=== PATIENT | male | born 1995 | race Two or more races ===

== ENCOUNTER 2018-05-28 11:57 | Emergency (ER) | payer OTHER ==
[~2018-05-28] VITALS: Ht 182.9 cm; Wt 106.6 kg
[2018-05-28 12:12] VITALS: BP 126/73
[2018-05-28] MEDS ORDERED: IBUPROFEN 600 MG TABLET PO ONE (12:30)
== END 2018-05-28 12:37 | disposition home or self-care (01) ==
LOC: ER 12:06
DX: J02.9 Acute pharyngitis, unspecified (principal); Z60.2 Problems related to living alone
CPT/HCPCS: 99283; A4606; Z7610

== ENCOUNTER 2020-02-15 01:12 | Inpatient (IN) | payer BC, OTHER ==
[~2020-02-15] VITALS: Ht 182.9 cm; Wt 107.0 kg
--- NOTE | 2020-02-15 01:20 | NUR ---
BIBSELF C/O LOWER ABDOMINAL PAIN X9 HR ACADEMIC PROGRAM SPECIALIST +NAUSEA, +DIARRHEA, -VOMITTING, -DYSURIA; PT TO BED 4, AAOX4, -SOB, NAD NOTED, PENDING ER PROVIDER TORO
[2020-02-15] MEDS ORDERED: ONDANSETRON HCL/PF 4 MG/2 ML VIAL ONE (01:35)
[2020-02-15] MEDS ORDERED: MORPHINE SULFATE INJ 4 MG/ML DISP.SYRIN ONE ×2 (01:36→03:08)
[2020-02-15] MEDS ORDERED: IV NS 0.9% 1,000 ML BAG IV ONE (02:00)
[2020-02-15] MEDS ORDERED: ONDANSETRON HCL/PF 4 MG/2 ML VIAL IVP ONE (02:00)
[2020-02-15] MEDS ORDERED: MORPHINE SULFATE INJ 2 MG/ML DISP.SYRIN IV ONE ×2 (02:00→03:30)
[2020-02-15] MEDS ORDERED: CT SWABBABLE VALVE TRANS SET 1 EA INFUS.SET MC ONE (02:26)
[2020-02-15] MEDS ORDERED: IOHEXOL-300 100 ML VIAL IV ONE (02:26)
[2020-02-15] MEDS ORDERED: IV NS 0.9% 250 ML IV ONE (02:27)
[2020-02-15 03:00] LABS: BASOPHILS % (AUTO) 0.3 % (0.0-2.0); EOSINOPHILS % (AUTO) 0.2 % (0.0-6.0); HEMATOCRIT 47 % (39-51); HEMOGLOBIN 15.8 g/dL (13.5-17.5); LYMPHOCYTES % (AUTO) 12.1 % (20.0-44.0); MEAN CORPUSCULAR HGB CONC 34 g/dl (31.0-36.0); MEAN CORPUSCULAR VOLUME 88 fL (80-96); MONOCYTES # (AUTO) 0.8 /CMM (0.1-1.30); MONOCYTES % (AUTO) 4.9 % (2.0-12.0); NEUTROPHILS # (AUTO) 13.9 /CMM (1.8-8.9); NEUTROPHILS % (AUTO) 82.5 % (43.0-81.0); PLATELET COUNT (AUTO) 324 /CMM (150-450); RED BLOOD CELL COUNT(AUTO) 5.35 MIL/uL (4.5-6.0); WHITE BLOOD COUNT (AUTO) 16.9 K/uL (4.3-11.0)
[2020-02-15 03:12] LABS: POTASSIUM 3.8 mmol/L (3.5-5.1)
[2020-02-15] MEDS ORDERED: HYDROMORPHONE 1 MG/1 ML DISP.SYRIN ONE (04:45)
--- NOTE | 2020-02-15 04:47 | NUR ---
COVID SWAB COLLECTED AND SENT TO LAB
[2020-02-15] MEDS ORDERED: HYDROMORPHONE 1 MG/1 ML DISP.SYRIN IV ONE (05:00)
[2020-02-15] MEDS ORDERED: PIPERACILLIN /TAZOBACTAM 3.375 G in IV D5W 50 ML IV ONE (05:00)
[2020-02-15] MEDS ORDERED: PIPERACILLIN /TAZOBACTAM 3.375 G VIAL IV ONE (05:15)
--- NOTE | 2020-02-15 05:19 | NUR ---
ATTEMPTED TO CONTACT DR. CASTILLO ([employer]) FOR CONSULT, LEFT MESSAGE. WILL FOLLOW UP
--- NOTE | 2020-02-15 05:20 | NUR ---
BLOOD CX COLLECTED, SENT TO LAB. IV ATB STARTED
--- NOTE | 2020-02-15 05:25 | NUR ---
DR. MARSH SPEAKING WITH DR. BANKS REGARDING ADMISSION
--- NOTE | 2020-02-15 05:42 | NUR ---
BED ASSIGNMENT 313-2
[2020-02-15] MEDS ORDERED: ONDANSETRON HCL/PF 4 MG/2 ML VIAL IVP PRN (06:00)
--- NOTE | 2020-02-15 06:02 | NUR ---
REPORT GIVEN TO HARSHAL TORREZ FOR BRITTANI; PT WILL BE TRANSPORTED TO 3RD FLOOR
--- NOTE | 2020-02-15 06:27 | NUR ---
PT TRANSPORTED TO 3RD FLOOR
[2020-02-15 06:40] VITALS: BP 149/99
[2020-02-15] MEDS: IV NS 0.9% 1,000 ML IV PRN ×2 (06:40→18:39)
--- NOTE | 2020-02-15 06:46 | NUR ---
Receive pt from E.R services via [facility] [id number] pt a/o x 4, complains of abdominalpain pt afebrile. kept clean, dry and comfortable will endorse for Admitting Assessment.
--- NOTE | 2020-02-15 08:00 | NUR ---
MS/RN NOTE Dr. Reddy called for pt's information, information given. Notified MD that patient wants to speak with him.
--- NOTE | 2020-02-15 08:00 | NUR ---
MS/RN ADMITTING NOTES Received patient resting in bed, A&O x 4. Patient complains of 9/10 sharp RLQ abdominal pain, will administer pain medication as ordered. Breathing even and non-labor on RA, no SOB noted. No cardiac distress noted. IV access noted on LAC #20 g, patent and intact, and running NS @ 100 mL/hr. No s/s of infection, infiltration, or bleeding noted on site. Sensation from all peripheral extremities intact. Kept NPO. Bed locked to its lowest position, side rails x 2 up, call light in hand. Instructed patient to use call light when in need of assistance. Will continue with current medical management.
[2020-02-15 08:46] VITALS: BP 149/99
[2020-02-15] MEDS: PANTOPRAZOLE 40 MG VIAL IV SCH (08:46)
[2020-02-15] MEDS: MORPHINE SULFATE INJ 2 MG/ML DISP.SYRIN IV PRN ×4 (09:11→22:52)
[2020-02-15] MEDS: PIPERACILLIN /TAZOBACTAM 3.375 G in IV D5W 100 ML IV SCH ×2 (10:55→17:24)
[2020-02-15 16:12] VITALS: BP 130/69
--- NOTE | 2020-02-15 16:19 | NUR ---
MS/RN NOTE Patient expressed the need to talk to Dr. Reddy and learn about the plan of care, notified Dr. Reddy.
--- NOTE | 2020-02-15 17:15 | NUR ---
MS/RN NOTE Dr. Reddy states he'll see patient later. Notified Dr. Reddy that patient's wants to talk to him as soon as possible.
--- NOTE | 2020-02-15 18:48 | NUR ---
MS/RN CLOSING NOTE Patient resting in bed, A&O x 4. All needs are met and attended to. Spoke with Dr. Reddy at bedside regarding treatment plan, patient expressed satisfaction with plan. Patient complains of 9/10 sharp RLQ abdominal pain, administered morphine 2mg @ 1838. VSS, afebrile, no SOB noted. No cardiac distress noted. IV access noted on LAC #20 g, patent and intact, and running NS @ 100 mL/hr. Sensation from all peripheral extremities remained intact. Kept NPO. Fall precautions maintained. Instructed patient to use call light when in need of assistance. Will continue with current medical management.
--- NOTE | 2020-02-15 19:16 | NUR ---
MS RN OPENING NOTES PATIENT AWAKE IN BED. A/OX4; ABLE TO VERBALIZE NEEDS. ON RA; DENIES SOB, PAIN, OR NAUSEA AT THIS TIME; BREATHING IS EVEN AND UNLABORED. IV PRESENT ON LEFT AC, SIZE 20, INTACT & PATENT WITH NS RUNNING AT 100 ML/HR. CURRENTLY NPO. SAFETY MEASURES IN PLACE AND PATIENT'S NEEDS MET. BED LOCKED, HOB ELEVATED, SIDE RAILS X2, CALL LIGHT WITHIN REACH. WILL CONTINUE TO MONITOR.
[2020-02-15 20:00] VITALS: BP 124/64
[2020-02-16] MEDS: PIPERACILLIN /TAZOBACTAM 3.375 G in IV D5W 100 ML IV SCH ×3 (02:34→18:01)
--- NOTE | 2020-02-16 07:00 | NUR ---
MS RN OPENING NOTE RECEIVED PT AWAKE IN BED AT THIS TIME. AOX4. NO SOB NOTED, NO S/ S OF ANY ACUTE DISTRESS NOTED. NO C/O PAIN AT THIS TIME. PT ABLE TO VERBALIZE NEEDS. RESPIRATIONS ARE EVEN AND UNLABORED. IV ACCESS NOTED IN LAC G#20, PATENT, INTACT AND FLUSHING WELL. FALL AND SAFETY PRECAUTION IN PLACE AND MAINTAINED AT ALL TIMES. BED IN LOWEST LOCKED POSITION, HOB ELEVATED, SIDE RAILS UP X 2, CALL LIGHT WITHIN REACH. WILL CONTINUE TO MONITOR
--- NOTE | 2020-02-16 07:38 | NUR ---
MS RN CLOSING NOTES PATIENT AWAKE IN BED. A/OX4. ON RA; DENIES SOB, PAIN, OR NAUSEA AT THIS TIME; BREATHING IS EVEN AND UNLABORED. IV PRESENT ON LEFT AC, SIZE 20, INTACT & PATENT WITH NS RUNNING AT 100 ML/HR. SAFETY MEASURES IN PLACE AND PATIENT'S NEEDS MET. BED LOCKED, HOB ELEVATED, SIDE RAILS X2, CALL LIGHT WITHIN REACH. ENDORSED TO DAY SHIFT RN PLAN OF CARE.
[2020-02-16 07:50] LABS: BASOPHILS % (AUTO) 0.2 % (0.0-2.0); EOSINOPHILS % (AUTO) 1.4 % (0.0-6.0); HEMATOCRIT 45 % (39-51); HEMOGLOBIN 14.8 g/dL (13.5-17.5); LYMPHOCYTES # (AUTO) 2.2 /CMM (0.8-4.8); LYMPHOCYTES % (AUTO) 19.1 % (20.0-44.0); MEAN CORPUSCULAR HGB CONC 33 g/dl (31.0-36.0); MEAN CORPUSCULAR VOLUME 88 fL (80-96); MONOCYTES % (AUTO) 8.5 % (2.0-12.0); NEUTROPHILS % (AUTO) 70.8 % (43.0-81.0); PLATELET COUNT (AUTO) 270 /CMM (150-450); RED BLOOD CELL COUNT(AUTO) 5.09 MIL/uL (4.5-6.0); WHITE BLOOD COUNT (AUTO) 11.3 K/uL (4.3-11.0)
[2020-02-16 08:00] VITALS: BP 114/60
[2020-02-16 08:16] LABS: CALCIUM, SERUM 8.7 mg/dL (8.5-10.1); CREATININE 1.1 mg/dL (0.6-1.3); MAGNESIUM 2.2 mg/dL (1.8-2.4); PHOSPHORUS 3.3 mg/dL (2.5-4.9); POTASSIUM 3.7 mmol/L (3.5-5.1)
[2020-02-16 08:23] LABS: THYROID STIMULATING HORMONE 1.186 uIU/mL (0.358-3.74)
[2020-02-16] MEDS: PANTOPRAZOLE 40 MG VIAL IV SCH (08:34)
[2020-02-16] MEDS: MORPHINE SULFATE INJ 2 MG/ML DISP.SYRIN IV PRN (08:34)
[2020-02-16] MEDS: IV NS 0.9% 1,000 ML IV PRN (08:37)
--- NOTE | 2020-02-16 08:40 | NUR ---
PT C/O RLQ ABD THROBBING PAIN OF 8/10 WHILE CHANGING POSITION. VS WNL. PER PT REQUEST,MORPHINE 2MG IV Q4HR PRN ADMINISTERED AT THIS TIME PER ORDER. WILL CONTINUE TO MONITOR
--- NOTE | 2020-02-16 11:44 | NUR ---
PER DR CASTILLO NOTES, STARTS LIQUIDS IN AM IF BOWEL FUNCTION IMPROVES. PT REPORTED LESS ABD PAIN AT THIS TIME, PT ADVANCED FROM NPO TO ICE CHIPS AT BREAKFAST. PT TOLERATED WELL. WILL ADVANCE PT TO CLEAR LIQUIDS AT LUNCH. WILL CONTINUE TO MONITOR
[2020-02-16 16:00] VITALS: BP 119/81
--- NOTE | 2020-02-16 16:10 | NUR ---
PT TOLERATED CLEAR LIQUIDS AT LUNCH VERY WELL, NO C/O ABD PAIN, PT REPORTED PASSING GAS WITH NO PAIN. DIET ADVANCED TOLERATED PER MD'S ORDER. DIET ADVANCED FROM CLEAR LIQUID TO FULL LIQUID. WILL CONTINUE TO MONITOR
--- NOTE | 2020-02-16 18:28 | NUR ---
RN CLOSING NOTES PT AWAKE IN BED AT THIS TIME. PT REMAINED STABLE THROUGHOUT SHIFT. ALL CARE, NEEDS, MEDICATIONS AND TREATMENT ADMINISTERED ANTICIPATED PER ORDER. PAIN MANAGEMENT ADMINISTERED. SAFETY PRECAUTION IN PLACE AND MAINTAINED AT ALL TIMES. BED IN LOWEST LOCKED POSITION, HOB ELEVATED, RAILS UP X 2, CALL LIGHT WITHIN REACH. WILL ENDORSE TO MOBILE PET GROOMER NURSE FOR BRITTANI
--- NOTE | 2020-02-16 19:54 | NUR ---
PT REQUESTING DISCHARGE TONIGHT. SPOKE WITH JONATHAN. CALL MADE TO MARIN CASTILLO AND INFORMED OF PATIENT CONDITION OF TOLERATING FULL LIQUID AND HAVING A BM THIS EVENING WITH MINOR RLQ ABD PAIN WITH MOVEMENT. STATES THAT DECISION TO RELEASE PT TONIGHT IS UP TO HOSPITALIST.
[2020-02-16 20:00] VITALS: BP 127/74
--- NOTE | 2020-02-16 20:27 | NUR ---
CONTACTED MIHAELA WITH [facility] RECOMENDATIONS NEW ORDERS FOR DISCHARGE RECIEVED PT TO FOLLOW UP WITH DR. CASTILLO IN 1 TO 2 WEEKS ADV DIET TOLERATED AND TO CALL IN RX FOR FLAGYL 500 MG PO TID AND LEVAQUIN 500 MG PO DAILY BOTH FOR 8 DAYS.
--- NOTE | 2020-02-16 20:42 | NUR ---
RX CALLED INTO [facility] [place] [address] [place] [address] PHONE LEVAQUIN 500MG PO DAILY FOR 8 DAYS. FLAGYL 500 MG TID PO FOR 8 DAYS.
--- NOTE | 2020-02-16 20:57 | NUR ---
reviewed discharge instructions with patient. requested they be reviewed by a different nurse because my michaela rn fedilyn to go over discharge instructions with patient.
--- NOTE | 2020-02-16 21:15 | NUR ---
discharge instructions reviewed with jeni cisneros and patient.
--- NOTE | 2020-02-16 21:31 | NUR ---
patient discharged to home. pt wanted to let zosyn antibiotic infuse prior to leaving.
--- NOTE | 2020-02-16 22:15 | NUR ---
DISCHARGE NOTE; ZOSYN ANTIBIOTIC FINISHED. IV HL DC'D FROM LEFT AC. CATHETER INTACT . NO S/S OF INFILTRATION PRESSUR DRESSING APPLIED WITH GAUZE. REVIEWED DISCHARGE INSTRUCTION SWITH PATIENT. PT VERBALIZED UNDERSTANDING OF WHERE TO ELECTRONIC OPERATOR NEW RX AND DIET AND TO FOLLOW UP WITH DR. CASTILLO. PT AMBULATED OFF UNIT WITH [facility].
[2020-02-17] MEDS ORDERED: PANTOPRAZOLE 40 MG TABLET.DR PO SCH (09:00)
== END 2020-02-16 22:15 | disposition home or self-care (01) | DRG 372 ==
LOC: ER 01:19 → MED 06:15
PROVIDERS: ADMIT Internal Medicine
DX: K35.33 Acute appendicitis with perforation, localized peritonitis, and gangrene, with abscess (principal); E87.2 Acidosis; E87.1 Hypo-osmolality and hyponatremia; K56.0 Paralytic ileus; Z68.32 Body mass index [BMI] 32.0-32.9, adult; E86.1 Hypovolemia
CPT/HCPCS: 36415; 80048-TC; 80061-TC; 83735-TC; 84100-TC; 84443-TC; 85025-TC; 85610-TC; 85730-TC; 87040-TC; 87081-TC; C9113; C9803-CS; G0378; J1170; J2270; J2405; J2543; J7030; J7050; J7060; Q9967